=== PATIENT | male | born 1935 | race Caucasian/White ===

== ENCOUNTER 2020-10-24 16:20 | Inpatient (IN) ==
[2020-10-24] MEDS ORDERED: MAGNESIUM SULF RIDER 2 GM in PREMIX 1 EACH IV PRN (16:55)
[2020-10-24] MEDS ORDERED: MAGNESIUM SULF RIDER 4 GM in PREMIX 1 EACH IV PRN (16:55)
[2020-10-24 18:29] LABS: Basophils # 0.1 10*3/uL (0.0-0.2); Basophils % 1.3 % (0.0-0.8); Eosinophils # 0.4 10*3/uL (0.0-0.87); Eosinophils % 4.9 % (0.00-10.9); Hematocrit 46.3 VOL% (42.0-52.0); Hemoglobin 15.7 GM/DL (14.0-18.0); Immature Granulocytes % 0.6 %; Immature Granulocytes Absolute 0.04 #; Lymphocytes # 1.6 10*3/uL (1.4-4.0); Lymphocytes % 22.2 % (21.2-54.2); Mean Corpuscular HGB Conc 33.9 GM/DL (32-36); Mean Corpuscular Volume 97.5 FL (87-102); Monocytes % 8.8 % (1.7-12.7); Neutrophils % 62.2 % (38.7-73.9); Platelet Count 227 T/CUMM (130-400); Red Blood Count 4.75 MC/CUMM (3.8-5.5); White Blood Count 7.1 T/CUMM (4-12)
[2020-10-24 18:58] LABS: Albumin 3.7 G/DL (3.4-5.0); Bilirubin,Total 0.6 MG/DL (0.2-1.0); Calcium 9.2 MG/DL (8.5-10.1); Osmolality,Calculated 283.4 MOS/KG (273-304); Potassium 4.3 MMOL/L (3.5-5.1); Total Protein 6.6 G/DL (5.0-7.5)
[2020-10-25] MEDS: LEVOTHYROXINE 50 MCG TABLET PO SCH (06:20)
[2020-10-25] MEDS ORDERED: ceFAZolin 1,000 MG in SYRINGE 1 EACH IV ONE (06:54)
[2020-10-25] MEDS ORDERED: DIAZEPAM 5 MG TABLET PO ONE ×2 (06:54→14:00)
[2020-10-25] MEDS ORDERED: diphenhydrAMINE CAP 50 MG CAPSULE PO ONE ×2 (06:54→14:00)
[2020-10-25] MEDS ORDERED: ceFAZolin 1,000 MG VIAL IRRIG ONE ×2 (06:54→14:00)
[2020-10-25] MEDS ORDERED: SODIUM CHLORIDE 0.9% 1,000 ML IV SCH ×2 (07:00)
[2020-10-25] MEDS ORDERED: LIDOCAINE 1% 20 ML VIAL ONE (14:04)
[2020-10-25] MEDS ORDERED: fentaNYL 100 MCG/2 ML VIAL ONE (14:04)
[2020-10-25] MEDS ORDERED: TISSUE ADHESIVE 1 EACH APPLICATOR TOP ONE (14:04)
[2020-10-25] MEDS ORDERED: ceFAZolin 1,000 MG VIAL ONE (14:04)
[2020-10-25] MEDS ORDERED: MIDAZOLAM 2 MG/2 ML VIAL ONE (14:04)
[2020-10-25] MEDS ORDERED: ONDANSETRON 4 MG/2 ML VIAL IV PRN (19:40)
[2020-10-26] MEDS: LEVOTHYROXINE 50 MCG TABLET PO SCH (05:33)
[2020-10-26 05:39] LABS: Basophils # 0.1 10*3/uL (0.0-0.2); Basophils % 0.7 % (0.0-0.8); Eosinophils # 0.3 10*3/uL (0.0-0.87); Eosinophils % 2.2 % (0.00-10.9); Hematocrit 47.6 VOL% (42.0-52.0); Hemoglobin 15.6 GM/DL (14.0-18.0); Immature Granulocytes % 0.6 %; Immature Granulocytes Absolute 0.09 #; Lymphocytes % 13.7 % (21.2-54.2); Mean Corpuscular HGB Conc 32.8 GM/DL (32-36); Mean Corpuscular Volume 100.4 FL (87-102); Mean Platelet Volume 10.7 FL (9.6-12.0); Monocytes % 10.1 % (1.7-12.7); Neutrophils % 72.7 % (38.7-73.9); Platelet Count 295 T/CUMM (130-400); Red Blood Count 4.74 MC/CUMM (3.8-5.5); Red Cell Distribution Width 14.1 % (9.3-17.3); White Blood Count 14.7 T/CUMM (4-12)
[2020-10-26 05:57] LABS: Potassium 4.2 MMOL/L (3.5-5.1)
[2020-10-26 10:56] VITALS: BP 110/73
== END 2020-10-26 14:18 | disposition home or self-care (01) | DRG 243 ==
LOC: N.ED 16:20 → N.EDINP 16:57 → N.TELEN 17:50
PROVIDERS: ADMIT Internal Medicine Cardiovascular Disease; ATTEND Internal Medicine Cardiovascular Disease